=== PATIENT | female | born 1945 | race Native Hawaiian/Other Pacific Islander ===

== ENCOUNTER 2020-08-12 08:37 | Outpatient (CLI) | payer OTHER, MEDICARE | END 2020-08-12 19:33 | disposition home or self-care (01) | LOC: INF 08:37 | PROVIDERS: ATTEND Internal Medicine | DX: Z23 Encounter for immunization (principal) | CPT/HCPCS: 96372 ==

== ENCOUNTER 2020-09-01 08:15 | Outpatient (CLI) | payer OTHER, MEDICARE | END 2020-09-01 19:51 | disposition home or self-care (01) | LOC: INF | PROVIDERS: ATTEND Internal Medicine | DX: Z23 Encounter for immunization (principal) | CPT/HCPCS: 96372 ==